=== PATIENT | female | born 1945 | race Caucasian/White ===

== ENCOUNTER → 2020-08-29 | Outpatient (CLI) | payer MEDICARE ==
[~2020-08-29] MED LIST: ASPI81EC PO; ATEN25 PO; Amlodipine Besyl5 MG PO; Aspir-Low81 MG PO; CARV6.25 PO; CEPH500 PO; DICL25ER PO; Ecotrin Low Strength PO; HCTZ PO; HYDCHL12.5 PO; HYDCHL25 PO; LEVSOD88 PO; LISI20 PO; METO50ER PO; OMEP20ER PO; OMEPRAZOLE MAGN20 MG PO; PRED20 PO; RXHYD5325 PO; SULTRIDS PO; XYZAL PO
== END | disposition home or self-care (01) ==
LOC: LAB SHORT 19:05 → LAB 19:05
DX: N39.0 Urinary tract infection, site not specified (principal)
CPT/HCPCS: 87086

== ENCOUNTER → 2021-05-24 | Outpatient (CLI) | payer OTHER | END | disposition home or self-care (01) | LOC: LAB EV 15:22 → LAB SHORT 15:22 | DX: N39.0 Urinary tract infection, site not specified (principal) | CPT/HCPCS: 87086 ==

== ENCOUNTER → 2021-06-04 | Outpatient (CLI) | payer OTHER | END | disposition home or self-care (01) | LOC: LAB SHORT 16:00 | DX: N39.0 Urinary tract infection, site not specified (principal) | CPT/HCPCS: 87086 ==